=== PATIENT | female | born 1985 | race Caucasian/White ===

== ENCOUNTER 2024-09-17 04:12 | Emergency (ER) | payer BC, OTHER, SELFPAY ==
[2024-09-17 04:15] VITALS: BP 104/77
[2024-09-17 04:37] VITALS: BMI 25.9
[2024-09-17 04:47] LABS: HCG, Urine Qualitative Screen Negative
[2024-09-17 04:52] LABS: Urine Albumin 4+ (Neg - Trace); Urine Bilirubin Negative (Negative); Urine Character Bloody (Clear); Urine Color Red; Urine Glucose Negative (Negative); Urine Ketone Negative (Negative); Urine Leukocyte 3+ (Negative); Urine Nitrite Negative (Negative); Urine Occult Blood 4+ (Negative); Urine Specific Gravity 1.025 (<1.030); Urine Urobilinogen Negative (Neg - 1+)
[2024-09-17] MEDS: Pyridium 200 MG PO (04:59)
[2024-09-17 05:11] LABS: Urine Bacteria Many (Negative); Urine Red Blood Cell >100 /HPF (0-2); Urine White Cell >100 /HPF (0-5)
--- NOTE | 2024-09-17 06:23 | ED.GENMED ---
Addendum entered and electronically signed by Ramses Nair PA-C 09/19/24 07:49:
Urine culture shows 100,000 colony-forming units of presumptive E. coli. Started on Keflex. Sensitivities pending
Original Note:
History of Present Illness
General
Chief Complaint: Urinary Symptoms
Source: patient
Exam Limitations: none
Time Seen by Provider: 09/17/24 04:40
Nursing documentation reviewed up to this point in time: agreed with
History of Present Illness
History of Present Illness:
This a pleasant 39-year-old female that presents with dysuria and hematuria. She states that she awakened from sleep with small amount of clotting. She states that she is due for her period. Denies fever, chills, nausea or vomiting. Reports no
other symptoms.
Past History
Past History
ED Past Medical History: None
ED Past Surgical History: None
Social History
Tobacco: Non-smoker
Phy Exam
General Physical Exam
General Presentation: well appearing and no apparent distress
General Skin: warm and dry
General Habitus: normal
General Mental: alert
General Hydration: appears well hydrated
ENT Exam
ENT Exam: EOMI, pharynx normal, neck supple and normocephalic
Eye Exam
Eye Exam: PERRL, cornea clear and conjunctiva normal
Cardiovascular Exam
Cardiovascular Exam: regular rate/rhythm, no edema, no murmur and normal peripheral pulses
Pulmonary Exam
Pulmonary Exam: lungs clear, no respiratory distress, no rales, no crackles, no rhonchi, no stridor, no wheezing and no cough
Gastrointestinal Exam
Gastrointestinal Exam: normal bowel sounds, non tender, soft, no organomegaly, no pulsatile mass and non distended
Neurological Exam
Neurological Exam: alert, oriented x3, no motor deficits and speech normal
Musculoskeletal Exam
Musculoskeletal Exam: full ROM and no edema
Skin Exam
Skin Exam: normal color, warm/dry, no rash and no petechia
Psychiatric Exam
Psychiatric Exam: normal mood/affect
Sepsis
Sepsis Screening
Sepsis Assessment: Sepsis Ruled Out
Sepsis Screen
Sepsis Screen: Sepsis Ruled Out
Date: 09/17/24
Time: 06:36
Course
Orders/Labs/Results
Orders:
Orders
09/17/24 04:24
Test Result ONCE
09/17/24 04:35
HCG, Urine Qualitative Screen Urgent
Date Specimen was Collected: 09/17/24
Time Specimen was Collected: 04:24
Urinalysis Reflex To Culture Urgent
Date Specimen was Collected: 09/17/24
Time Specimen was Collected: 04:22
Urine Microscopic Reflex Cult Urgent
Urine Culture Urgent
LUCA Source: U
Specimen Description:
Date Specimen was Collected: 09/17/24
Time Specimen was Collected: 04:22
09/17/24 04:49
Phenazopyridine HCl [Pyridium] 200 mg PO NOW STA
09/17/24 06:22
Cephalexin Monohydrate [Keflex] 500 mg PO NOW STA
Abnormal Lab Results
09/17/24
04:35
Ur Occult Blood Reflex 4+ A
(Negative)
Leukocyte Esterase Rfl 3+ A
(Negative)
Urine RBC >100 A /HPF
(0-2)
Urine WBC (Reflex) >100 A /HPF
(0-5)
Urine Bacteria (Reflex) Many A
(Negative)
Urine Albumin (Reflex) 4+ A
(Neg - Trace)
Vital Signs
Initial and Last Documented VS:
Initial Vital Signs
Temp Pulse Resp BP Pulse Ox
97.7 F 104 22 104/77 100
09/17/24 04:15 09/17/24 04:15 09/17/24 04:15 09/17/24 04:15 09/17/24 04:15
Last Documented Vital Signs
Temp Pulse Resp BP Pulse Ox
97.7 F 104 22 104/77 100
09/17/24 04:15 09/17/24 04:15 09/17/24 04:15 09/17/24 04:15 09/17/24 04:15
*Critical Care Note
Total Time (30-74mins, 75-104mins- exclusive of procedures): Not Applicable
Update Note
Update Note:
Patient had no CVA tenderness bilaterally. With the hematuria we talked about possibly doing a CT scan or other imaging study. At this point she deferred. We discussed return to ER instructions. I feel that it is reasonable to watch and wait.
If symptoms worsen she assured me that she would come back for further imaging.
ED Attending Note
-
Portions of this chart may have been created with voice recognition software.� Occasional wrong word or��sound alike� substitutions may have occurred due to the inherent limitations of voice recognition software.
Discharge Plan
Departure
Patient Disposition: Home (Routine Discharge)
Date of Disposition: 09/17/24
Time of Disposition: 06:24
Patient with high blood pressure during this ER visit?: No
Condition: Good
Discharge Problem:
UTI (urinary tract infection)
Instructions: Urinary Tract Infection, Adult (DC)
Prescriptions:
New
cephalexin 500 mg capsule
500 mg PO BID 7 Days Qty: 14 0RF
phenazopyridine [Pyridium] 100 mg tablet
100 mg PO TID PRN (Reason: Pain) Qty: 10 0RF
No Action
polyethylene glycol 3350 [Miralax] 17 gram Powder In Packet
17 g PO DAILY
escitalopram oxalate [Lexapro] 10 mg Tablet
20 mg PO DAILY
bupropion HCl [Wellbutrin SR] 150 mg Tablet Sustained-Release 12 Hr
150 mg PO DAILY
Zepbound 7.5 mg/0.5 mL Pen Injector
7.5 mg SC QWEEK
Referrals:
[facility] [Outside]
UNKNOWN - PT DOES,NOT KNOW [Family Provider] -
Activity Restrictions/Additional Instructions:
Your prescriptions were sent electronically to the pharmacy that you specified.
It was a pleasure meeting you and taking part in your care. We hope for your continued healing and wellness.
Please read discharge instructions in their entirety. However, they are for general education and may not describe your exact diagnosis at discharge. Information on your ER visit and medical conditions were discussed with you along with appropriate
follow up information...
If indicated, please take your medications as instructed and indicated on discharge paperwork.
Please schedule a follow up appointment as directed. Call to schedule an appointment
Please return to the emergency department with ANY change in, persisting, or worsening of symptoms. If any of your symptoms do not improve, or persist, or become more severe within 6-12 hours, please return to the emergency department for further
care.
Please return to the emergency department if you develop a headache, neck pain/stiffness, fever greater than 100.4F, chest pain, shortness of breath, persistent nausea, vomiting, slurred speech, difficulty walking, numbness/tingling, weakness, signs
of infection or any other symptoms that are worrisome to you.
If you have any questions or concerns please do not hesitate to call the Hospital at or E-mail me directly at [email or web address]
Interventions
Interventions:
*Risk Screen - Suicide Last Done: 09/17/24 04:15
*General Assessment Last Done: 09/17/24 04:35
*Neglect/Abuse Screening Last Done: 09/17/24 04:15
ED- Fall Risk Assessment Last Done: 09/17/24 04:35
*ED COVID-19 Vaccine History Last Done: 09/17/24 04:35
ED-Female Genitourinary Assessment Last Done: 09/17/24 04:35
Discharge Date and Time
Print Language: NAMIBIAN
[2024-09-17 06:30] VITALS: BP 100/74
[2024-09-17] MEDS: KEFLEX 500 MG PO (06:30)
== END 2024-09-17 06:30 | disposition home or self-care (01) ==
LOC: EMR 04:12
PROVIDERS: EMERGENCY PHYSICIAN Student in an Organized Health Care Education/Training Program
DX: N39.0 Urinary tract infection, site not specified (principal)
CPT/HCPCS: 99282; 81003; 81015; 81025; 87086; 87088